=== PATIENT | male | born 1985 | race Caucasian/White ===

== ENCOUNTER 2017-05-18 17:38 | Outpatient (CLI) | payer OTHER ==
[2015-02-17 12:42] VITALS: BP 118/68
[2017-05-18 17:53] LABS: BASOPHILS % 1.4 (0.0-1.5); EOSINOPHILS % 1.7 % (0.0-6.8); MEAN CORPUSCULAR VOLUME 92.5 fl (80.0-100.0); NEUTROPHILS # 6.7 # k/uL (1.4-7.7)
[2017-05-18 18:12] LABS: eGFR (African) > 60; eGFR (Non-African) > 60
== END 2017-05-18 17:40 ==
LOC: LAB 17:38
PROVIDERS: ATTEND Physician Assistant
DX: R50.9 Fever, unspecified (principal); M25.50 Pain in unspecified joint
CPT/HCPCS: 80053; 85025; 85651; 86038; 86308

== ENCOUNTER 2017-06-07 17:44 | Outpatient (CLI) | payer OTHER ==
[2015-02-17 12:42] VITALS: BP 118/68
[2017-06-07 18:02] LABS: BASOPHILS % 0.5 (0.0-1.5); EOSINOPHILS % 2.4 % (0.0-6.8); MEAN CORPUSCULAR HEMOGLOBIN 30.5 pg (28.0-34.0); MEAN CORPUSCULAR VOLUME 89.5 fl (80.0-100.0); MONOCYTES % 3.1 % (0.0-11.0); NEUTROPHILS # 15.4 # k/uL (1.4-7.7)
[2017-06-07 18:22] LABS: eGFR (African) > 60; eGFR (Non-African) > 60
== END 2017-06-07 17:45 ==
LOC: LAB 17:44
PROVIDERS: ATTEND Physician Assistant
DX: M25.50 Pain in unspecified joint (principal)
CPT/HCPCS: 36415; 80053; 85025; 85651; 86431

== ENCOUNTER 2017-06-09 10:52 | Outpatient (CLI) | payer OTHER ==
[2015-02-17 12:42] VITALS: BP 118/68
[2017-06-09 11:30] LABS: APPEARANCE,URINE Clear (CLEAR); COLOR,URINE Yellow (YELLOW); OCCULT BLOOD,URINE Negative (NEGATIVE); PH URINE 7.5 (5.0 - 8.0); UROBILINOGEN URINE 0.2 Eu (0.2-1.0)
--- NOTE | 2017-06-09 13:25 | Diagnostic Imaging Report ---
ALEXEI SALAZAR [facility] [id number] [facility] [address] [address] Report Submission Date: Jun 09, 2017 11:45:59 AM TRAIN EXAMINER Patient Study Name: FRANSISCO COSTELLO Date: Jun 09, 2017 11:23:36 AM TRAIN EXAMINER Modality Type: DX Gender: M Description: CHEST : 83 Institution: [facility] Physician: ALEXEI SALAZAR Examination: PA and lateral chest. History: ELEVATED SED RATE LEUKOCYTOSIS (Hx) Findings: PA lateral chest demonstrate a normal cardiac and mediastinal silhouette. No focal infiltrate. No blunting of the costophrenic margins. Mild posterior sulci blunting. Osseous structures are appropriate for age. Impression: No acute appearing pulmonary process. Electronically signed on Jun 09, 2017 11:45:59 AM TRAIN EXAMINER by: Jj GARCÍA
== END 2017-06-09 10:53 ==
LOC: LAB 10:52
PROVIDERS: ATTEND Physician Assistant
DX: D72.829 Elevated white blood cell count, unspecified (principal); R70.0 Elevated erythrocyte sedimentation rate
CPT/HCPCS: 71046; 81002; 87040